=== PATIENT | female | born 1995 | race Caucasian/White ===

== ENCOUNTER → 2016-09-20 | Outpatient (CLI) | payer BC ==
[~2016-09-20] MED LIST: BCP; BUPR150T7 PO; CYCL10TA9 PO; ETHI1TAB21 PO; FRS325T; FRS325T PO; LEVOTHYROXINE; LVT.025T PO; METF500T4 PO; MTF500T PO; [UNRECOGNIZED DRUG - CODE] PO
--- NOTE | 2016-09-20 17:00 | Diagnostic Imaging Report ---
INDICATION: Hematuria. FINDINGS: There is question of tiny calculus overlying lower pole of the right kidney; however, there is stool overlying this and this could be within the colon. No calculi are seen along the route of the ureters. No calculi are seen of the bladder. IMPRESSION: Possible small calculus over the lower pole of the right kidney. Dictated by: Dictated on workstation # [id number]
== END ==
LOC: RAD 15:25
PROVIDERS: ATTEND Nurse Practitioner Family
DX: R31.9 Hematuria, unspecified (principal)
CPT/HCPCS: 74000